=== PATIENT | female | born 1985 | race Two or more races ===

== ENCOUNTER 2018-07-26 12:20 | Emergency (ER) | payer OTHER ==
[~2018-07-26] VITALS: Ht 165.1 cm; Wt 77.1 kg
[2018-07-26] MEDS ORDERED: KEPPRA1000 MG (13:18)
[2018-07-26] MEDS ORDERED: DILANTIN100 MG (13:19)
[2018-07-26] MEDS ORDERED: LAMICTAL100 M1 (13:19)
[2018-07-26] MEDS ORDERED: SYNTHROID50 MCG PO (13:19)
[2018-07-26] MEDS ORDERED: ELAVIL PO (13:20)
== END 2018-07-26 17:57 | disposition home or self-care (01) ==
LOC: ER 12:20
DX: N83.02 Follicular cyst of left ovary (principal); N39.0 Urinary tract infection, site not specified

== ENCOUNTER 2019-03-05 10:27 | Emergency (ER) | payer OTHER ==
[~2019-03-05] VITALS: Ht 165.1 cm; Wt 77.1 kg
[~2019-03-05 10:27] MED LIST: DILANTIN100 MG; ELAVIL PO; KEPPRA1000 MG; LAMICTAL100 M1; SYNTHROID50 MCG PO
== END 2019-03-05 18:53 | disposition home or self-care (01) ==
LOC: ER 10:27
DX: N20.1 Calculus of ureter (principal)

== ENCOUNTER 2019-05-16 07:52 | Outpatient (CLI) | payer OTHER | END 2019-05-16 11:57 | disposition home or self-care (01) | LOC: SONOGRAMA 07:52 | DX: E04.1 Nontoxic single thyroid nodule (principal) ==

== ENCOUNTER 2019-08-20 15:04 | Emergency (ER) | payer OTHER ==
[~2019-08-20] VITALS: Ht 165.1 cm; Wt 78.9 kg
[2019-08-20] MEDS ORDERED: SYNTHROID88 MCG (15:25)
[2019-08-20] MEDS ORDERED: KEPPRA500 MG (15:25)
== END 2019-08-20 16:48 | disposition home or self-care (01) ==
LOC: ER 15:04
DX: J35.01 Chronic tonsillitis (principal)

== ENCOUNTER 2020-11-26 10:36 | Emergency (ER) | payer OTHER ==
[~2020-11-26] VITALS: Ht 165.1 cm; Wt 75.3 kg
[~2020-11-26 10:36] MED LIST changes: +KEPPRA500 MG; +SYNTHROID88 MCG
[2020-11-26] MEDS ORDERED: KEPPRA1000 MG (10:46)
[2020-11-26] MEDS ORDERED: SYNTHROID100 MCG (10:46)
[2020-11-29] MEDS ORDERED: ACETAMINOPHEN650 M2 PO (00:04)
[2020-11-29] MEDS ORDERED: BENADRYL ALLERG25 MG PO (00:04)
== END 2020-11-26 13:15 | disposition home or self-care (01) ==
LOC: ER 10:36
DX: B34.9 Viral infection, unspecified (principal); Z03.818 Encounter for observation for suspected exposure to other biological agents ruled out

== ENCOUNTER → 2020-11-28 | Emergency (ER) | payer OTHER ==
[~2020-11-28] VITALS: Ht 165.1 cm; Wt 74.8 kg
[~2020-11-28] MED LIST changes: +ACETAMINOPHEN650 M2 PO; +BENADRYL ALLERG25 MG PO; +SYNTHROID100 MCG
== END | disposition home or self-care (01) ==
LOC: ER 16:20
DX: A90 Dengue fever [classical dengue] (principal); B34.9 Viral infection, unspecified; Z03.818 Encounter for observation for suspected exposure to other biological agents ruled out

== ENCOUNTER → 2021-03-23 | Emergency (ER) | payer OTHER ==
[~2021-03-23] VITALS: Ht 165.1 cm; Wt 74.8 kg
[~2021-03-23] MED LIST changes: +KEPPRA1000 MG PO; +KEPPRA750 MG PO; +SYNTHROID150 MCG PO
== END | disposition left against medical advice (07) ==
LOC: ER 11:52
DX: Z53.20 Procedure and treatment not carried out because of patient's decision for unspecified reasons (principal)

== ENCOUNTER 2021-04-18 11:20 | Outpatient (CLI) | payer OTHER | END 2021-04-18 12:00 | disposition home or self-care (01) | LOC: RAD 11:20 → SONOGRAMA 14:00 | PROVIDERS: ATTEND General Practice | DX: M54.5 Low back pain (principal); R07.89 Other chest pain ==

== ENCOUNTER 2021-11-13 13:05 | Outpatient (CLI) | payer OTHER | END 2021-11-13 13:22 | disposition home or self-care (01) | LOC: SONOGRAMA 13:05 | PROVIDERS: ATTEND Specialist | DX: E03.9 Hypothyroidism, unspecified (principal); R22.1 Localized swelling, mass and lump, neck; D25.9 Leiomyoma of uterus, unspecified ==

== ENCOUNTER 2021-12-18 09:45 | Outpatient (CLI) | payer OTHER | END 2021-12-18 09:56 | disposition home or self-care (01) | LOC: SONOGRAMA 09:45 | PROVIDERS: ATTEND Neurological Surgery | DX: R10.11 Right upper quadrant pain (principal) ==

== ENCOUNTER 2022-02-24 12:21 | Emergency (ER) | payer OTHER ==
[~2022-02-24] VITALS: Ht 170.2 cm; Wt 72.6 kg
[2022-02-24] MEDS ORDERED: PEPCID AC20 MG PO (20:23)
[2022-02-24] MEDS ORDERED: LEVSIN/SL0.125 MG SL (20:23)
== END 2022-02-24 20:40 | disposition home or self-care (01) ==
LOC: ER 12:21
DX: R10.84 Generalized abdominal pain (principal); N20.0 Calculus of kidney

== ENCOUNTER 2022-08-07 08:52 | Outpatient (CLI) | payer OTHER ==
[~2022-08-07 08:52] MED LIST changes: +LEVSIN/SL0.125 MG SL; +PEPCID AC20 MG PO
== END 2022-08-07 09:04 | disposition home or self-care (01) ==
LOC: MAMO-SONO 08:52
PROVIDERS: ATTEND Obstetrics & Gynecology
DX: N93.8 Other specified abnormal uterine and vaginal bleeding (principal); N64.4 Mastodynia

== ENCOUNTER 2023-06-12 11:35 | Outpatient (CLI) | payer OTHER | END 2023-06-12 11:52 | disposition home or self-care (01) | LOC: SONOGRAMA 11:35 | PROVIDERS: ATTEND Surgery | DX: D24.2 Benign neoplasm of left breast (principal) ==

== ENCOUNTER 2024-04-11 10:48 | Outpatient (CLI) | payer OTHER ==
[~2024-04-11 10:48] MED LIST changes: +KETO10TA2 PO
== END 2024-04-11 11:11 | disposition home or self-care (01) ==
LOC: MAMO-SONO 10:48
DX: Z12.39 Encounter for other screening for malignant neoplasm of breast (principal)